=== PATIENT | male | born 1975 | race Asian ===

== ENCOUNTER 2024-08-04 00:49 | Emergency (ER) | payer SELFPAY ==
[~2024-08-04] VITALS: Ht 165.1 cm; Wt 55.0 kg
[2024-08-04 00:52] VITALS: O2SAT 98
[2024-08-04] MEDS: BACITRACIN ZINC OINT UDPKT TOP ONE (02:22)
[2024-08-04] MEDS: LIDOCAINE HCL 1% 20ML VIAL INFIL ONE (02:22)
[2024-08-04] MEDS: POVIDONE-IODINE 10% TOPICAL SOLN 240ML TOP ONE (02:22)
[2024-08-04] MEDS ORDERED: BO1 TP (02:29)
[2024-08-04] MEDS: TETANUS, DIPHTHERIA, PERTUSSIS VAC/PF 0.5ML (>10YR OLD) IM ONE (03:22)
[2024-08-04 03:24] VITALS: BP 122/80; PULSE 62; RESP 18; TEMP 36.7; O2SAT 98
== END 2024-08-04 03:25 | disposition home or self-care (01) ==
LOC: ER 01:11
DX: S01.112A Laceration without foreign body of left eyelid and periocular area, initial encounter (principal); W18.30XA Fall on same level, unspecified, initial encounter; X58.XXXA Exposure to other specified factors, initial encounter; Y93.89 Activity, other specified; Y92.89 Other specified places as the place of occurrence of the external cause; Y99.8 Other external cause status
CPT/HCPCS: 99283; 90715; 12013; 90471; J3490